=== PATIENT | female | born 1980 | race Caucasian/White ===

== ENCOUNTER → 2018-08-14 12:22 | Outpatient (CLI) | payer OTHER, SELFPAY ==
--- NOTE | 2018-08-14 12:25 | RAD_ITS ---
HISTORY: cough x 4 weeks, has had antibiotics, coughing up phlegm EXAM: XR Chest 2 Views: COMPARISON: None FINDINGS: # of images incl. paperwork: 2 LINES/DEVICES: None. LUNGS: Radiographically clear. No consolidation, edema or effusion. No pneumothorax. MEDIASTINUM AND CARDIOVASCULAR STRUCTURES: Cardiac silhouette not enlarged. Central airways and mediastinal contour are unremarkable. BONES AND SOFT TISSUES: Unremarkable. RAD/Chest PA and Lateral IMPRESSION: No radiographic evidence of acute cardiopulmonary disease. at 1237 Reported and signed by: Vasquez Greenwood MD Electronically Signed: Vasquez Greenwood, at 12:35 EST Tel , Service support ,
== END ==
PROVIDERS: Referring Provider Physician Assistant; Visit Provider Physician Assistant
DX: R05 Cough (principal)
CPT/HCPCS: 71046

== ENCOUNTER → 2019-02-23 08:17 | Outpatient (CLI) | payer OTHER, SELFPAY ==
[2019-02-23 08:46] LABS: Cholesterol 209 mg/dL (200); High Density Lipoprotein 76 mg/dL; Triglycerides 56 mg/dL; Very Low Density Lipoprotein 11 mg/dL (5-40)
== END ==
PROVIDERS: Family Provider Family Medicine; PCP Family Medicine; Referring Provider Family Medicine; Visit Provider Family Medicine
DX: E78.5 Hyperlipidemia, unspecified (principal)
CPT/HCPCS: 36415; 80061

== ENCOUNTER → 2019-07-23 12:55 | Outpatient (CLI) | payer OTHER, SELFPAY ==
[2019-07-23 08:03] VITALS: BMI 27.3
[2019-07-23 15:12] LABS: Chlamydia Trachomatis by PCR Negative (Negative); Neisserai gonorrhoeae by PCR Negative (Negative); Probe Check PASS; Sample Adequacy Control PASS; Specimen Processing Control PASS
[2019-07-25 17:58] LABS: HPV APTIMA, High Risk Negative (Negative)
== END ==
PROVIDERS: Family Provider Family Medicine; PCP Family Medicine; Referring Provider Obstetrics & Gynecology; Visit Provider Obstetrics & Gynecology
DX: O09.90 Supervision of high risk pregnancy, unspecified, unspecified trimester (principal); Z12.4 Encounter for screening for malignant neoplasm of cervix
CPT/HCPCS: 87086; 87491; 87591; 87624; 88175; G0145

== ENCOUNTER → 2019-08-03 11:14 | Outpatient (CLI) | payer OTHER, SELFPAY ==
[2019-07-23 08:03] VITALS: BMI 27.3
[2019-08-03 11:37] LABS: Absolute Lymphocyte Count 1.65 X10^3/uL (0.83-4.51); Absolute Neutrophil Count 7.1 X10^3/uL (2.0-7.7); Basophil# 0.04 X10^3/uL; Basophil% 0.4 % (0-1); Eosinophil# 0.17 X10^3/uL; Eosinophils% 1.8 % (0-5); Hematocrit 39.8 % (37-47); Hemoglobin 13.1 g/dL (12.0-15.0); Lymphocyte # 1.65 X10^3/ul (4.0); Lymphocyte % 17.3 % (19-41); Mean Corp Hgb Conc 32.9 g/dL (32-36); Mean Corpuscular Hgb 29.9 pg (27.0-32.0); Mean Corpuscular Volume 90.9 fL (81-99); Mean Platelet Vol. 10.6 fl (6.2-12.0); Monocyte# 0.56 X10^3/uL; Monocyte% 5.9 % (0-10); NRBC Flagged by Analyzer 0 % (0-5); Neutrophil % 74.3 % (47-70); Platelet Count 263 K/mm3 (150-450); RBC Distribution Width CV 13.1 % (11.6-14.6); RBC Distribution Width SD 42.8 fl (35.1-43.9); Red Blood Count 4.38 M/mm3 (4.2-5.4); White Blood Count 9.6 K/mm3 (4.4-11.0)
[2019-08-03 12:19] LABS: NATERA MAILED SPECIMEN
[2019-08-03 12:53] LABS: HIV - WCH Non-Reactive (Nonreactive); Hepatitis B Surface Antigen Non-Reactive (Nonreactive); Hepatitis C Antibody Non-Reactive (Nonreactive); Rubella IgG > 500.0 IU/mL
[2019-08-09 01:51] LABS: Rapid Plasmin Reagin (RPR) NONREACTIVE (NONREACTIVE)
== END ==
PROVIDERS: PCP Family Medicine; Referring Provider Obstetrics & Gynecology; Visit Provider Obstetrics & Gynecology
DX: O09.511 Supervision of elderly primigravida, first trimester (principal); Z31.430 Encounter of female for testing for genetic disease carrier status for procreative management
CPT/HCPCS: 36415; 85025; 86592; 86703; 86762; 86803; 86850; 86900; 86901; 87340

== ENCOUNTER → 2019-11-19 09:39 | Outpatient (CLI) | payer OTHER, SELFPAY ==
[2019-11-19 08:44] VITALS: BMI 27.3
[2019-11-19 12:17] LABS: Absolute Lymphocyte Count 1.42 X10^3/uL (0.83-4.51); Absolute Neutrophil Count 6.4 X10^3/uL (2.0-7.7); Basophil# 0.03 X10^3/uL; Basophil% 0.4 % (0-1); Eosinophil# 0.13 X10^3/uL; Eosinophils% 1.5 % (0-5); Hematocrit 35.3 % (37-47); Hemoglobin 11.6 g/dL (12.0-15.0); Lymphocyte # 1.42 X10^3/ul (4.0); Lymphocyte % 16.8 % (19-41); Mean Corp Hgb Conc 32.9 g/dL (32-36); Mean Corpuscular Hgb 30.7 pg (27.0-32.0); Mean Corpuscular Volume 93.4 fL (81-99); Mean Platelet Vol. 11.3 fl (6.2-12.0); Monocyte# 0.42 X10^3/uL; NRBC Flagged by Analyzer 0 % (0-5); Neutrophil # 6.41 X10^3/uL (2.7-7.7); Neutrophil % 75.8 % (47-70); Platelet Count 237 K/mm3 (150-450); RBC Distribution Width CV 12.6 % (11.6-14.6); RBC Distribution Width SD 43.4 fl (35.1-43.9); Red Blood Count 3.78 M/mm3 (4.2-5.4); White Blood Count 8.5 K/mm3 (4.4-11.0)
[2019-11-19 12:36] LABS: Glucose Challenge Gest 1H 50g 130 mg/dL (70-140)
== END ==
PROVIDERS: PCP Family Medicine; Referring Provider Nurse Practitioner Women's Health; Visit Provider Nurse Practitioner Women's Health
DX: O09.90 Supervision of high risk pregnancy, unspecified, unspecified trimester (principal); Z3A.00 Weeks of gestation of pregnancy not specified
CPT/HCPCS: 36415; 82950; 85025

== ENCOUNTER → 2020-01-30 17:01 | Outpatient (CLI) | payer OTHER, SELFPAY ==
[2020-01-30 08:20] VITALS: BMI 27.3
== END ==
PROVIDERS: PCP Family Medicine; Referring Provider Obstetrics & Gynecology; Visit Provider Obstetrics & Gynecology
DX: Z34.90 Encounter for supervision of normal pregnancy, unspecified, unspecified trimester (principal)
CPT/HCPCS: 87081

== ENCOUNTER → 2020-02-14 08:17 | Outpatient (CLI) | payer OTHER, SELFPAY ==
[2020-02-14 08:12] VITALS: BMI 27.3
[2020-02-14 08:44] LABS: Protein, Urine (Random) 27.5 mg/dL (<11.9); Protein:Creat Ratio 297 mg/g CRE (0-200)
[2020-02-14 09:06] LABS: ALB/GLOB Ratio 0.7 RATIO (0.9-2.4); AST(SGOT) 22 U/L (15-37); Alanine Aminotransfer ALT/SGPT 26 U/L (13-56); Albumin, Serum 2.6 g/dL (3.2-5.0); Alkaline Phosphatase 213 U/L (45-117); Anion Gap 6 (5-15); BUN 11 mg/dL (7-18); BUN/Creat Ratio 16.1 RATIO (10-20); Calcium,Total 8.3 mg/dL (8.5-10.1); Chloride 103 mmol/L (98-107); Creatinine, Serum 0.68 mg/dL (0.55-1.02); EST Glomerular Filtration Rate 102 mL/min (>60); Est Glom Filt Rate - Afr Amer 124 mL/min (>60); Globulin 3.7 g/dL (2.2-4.2); Glucose 98 mg/dL (74-106); Potassium 3.7 mmol/L (3.5-5.1); Protein, Total 6.3 g/dL (6.4-8.2); Sodium Level 133 mmol/L (136-145)
== END ==
LOC: LABSPEC 08:17 → PAVLAB 08:30
PROVIDERS: PCP Family Medicine; Referring Provider Obstetrics & Gynecology; Visit Provider Obstetrics & Gynecology
DX: O09.519 Supervision of elderly primigravida, unspecified trimester (principal); Z3A.00 Weeks of gestation of pregnancy not specified
CPT/HCPCS: 36415; 80053; 82570; 84156

== ENCOUNTER → 2020-02-14 12:14 | Outpatient (CLI) | payer OTHER, SELFPAY ==
[2020-02-14 08:12] VITALS: BMI 27.3
--- NOTE | 2020-02-14 12:15 | US_ITS ---
STUDY: OBSTETRICAL ULTRASOUND - BIOPHYSICAL PROFILE REASON FOR EXAM: Female, 39 years old well being LMP: PRIOR ULTRASOUND: None. TECHNIQUE: TECHNICAL QUALITY: Adequate. FINDINGS: There is a single intrauterine fetus. The fetus is in a cephalic presentation. There is demonstrated cardiac activity with a heart rate of 144 bpm. There is a normal amniotic fluid volume. The largest amniotic fluid pocket measures 5.5 cm. The amniotic fluid index (JOCELIN) is 13.1 cm. The placenta is There are Grade 2 placental changes. Age by LMP: 38 weeks, 4 days. MICHAEL by LMP: 02/24/2020.. BIOPHYSICAL PROFILE: Breathing Movements (FBM): 2 Gross Body Movements (GBM): 2 Tone (FT): 2 Amniotic Fluid Volume (AFV): 2 TOTAL SCORE: 8 / 8 US/Biophysical Prof W/O Non Stres IMPRESSION: Normal biophysical profile of 8/8. Electronically Signed: Heri Coates, at 13:14 EDT , Service support ,
== END ==
PROVIDERS: PCP Family Medicine; Referring Provider Obstetrics & Gynecology; Visit Provider Obstetrics & Gynecology
DX: Z36.9 Encounter for antenatal screening, unspecified (principal); O09.513 Supervision of elderly primigravida, third trimester; Z3A.38 38 weeks gestation of pregnancy
CPT/HCPCS: 76819

== ENCOUNTER 2020-02-16 12:35 | Inpatient (IN) | payer OTHER, SELFPAY ==
[2020-01-14 08:08] VITALS: BMI 32.8
[2020-02-14 08:12] VITALS: BMI 27.3
[2020-02-16] VITALS (45 sets, daily range): BP systolic 104–149; BP diastolic 54–87; PULSE 56–105; RESP 16; TEMP 35.9–36.7; O2SAT 93–99; BMI 33.4
[2020-02-16] MEDS: Lactated Ringers 1,000 ML 50 ML IV (11:00)
[2020-02-16 11:17] LABS: Absolute Lymphocyte Count 1.59 X10^3/uL (0.83-4.51); Absolute Neutrophil Count 6.9 X10^3/uL (2.0-7.7); Basophil# 0.03 X10^3/uL; Basophil% 0.3 % (0-1); Eosinophil# 0.07 X10^3/uL; Eosinophils% 0.8 % (0-5); Hematocrit 39.2 % (37-47); Hemoglobin 13.2 g/dL (12.0-15.0); Lymphocyte # 1.59 X10^3/ul (4.0); Lymphocyte % 17.4 % (19-41); Mean Corp Hgb Conc 33.7 g/dL (32-36); Mean Corpuscular Hgb 30.9 pg (27.0-32.0); Mean Corpuscular Volume 91.8 fL (81-99); Monocyte# 0.56 X10^3/uL; Monocyte% 6.1 % (0-10); NRBC Flagged by Analyzer 0 % (0-5); Neutrophil # 6.87 X10^3/uL (2.7-7.7); Neutrophil % 75.1 % (47-70); Platelet Count 249 K/mm3 (150-450); RBC Distribution Width SD 42.5 fl (35.1-43.9); Red Blood Count 4.27 M/mm3 (4.2-5.4); White Blood Count 9.2 K/mm3 (4.4-11.0)
[2020-02-16] MEDS: fentaNYL 100 MCG/2 ML Ampul 50 MCG IV (11:25)
[2020-02-16] MEDS: Lactated Ringers 500 ML 999 ML IV ×2 (12:37→14:16)
[2020-02-16] MEDS: fentaNYL 100 MCG/2 ML Ampul IV (13:28)
[2020-02-16] MEDS: fentaNYL-bupivacaine (epidural) 100 ML BAG EPIDURAL (13:45)
[2020-02-16] MEDS: Oxytocin 30 units/NS 500 ml 30 UNITS/500 ML IV.SOLN 334 UNITS IV (16:05)
[2020-02-16 16:06] LABS: Probe Check PASS; Specimen Processing Control PASS
[2020-02-16] MEDS: Naproxen 250 MG Tablet 500 MG PO (17:33)
[2020-02-17] VITALS: BP 134/77; PULSE 88; RESP 16; TEMP 37.1
[2020-02-17 00:03] VITALS: BP 134/77; PULSE 88
[2020-02-17] MEDS: Acetaminophen 500 MG Tablet 1000 MG PO (00:12)
[2020-02-17 02:00] VITALS: BP 123/80; PULSE 85; RESP 16; TEMP 36.6
--- NOTE | 2020-02-17 04:54 | HP.PCM_ITS ---
- Problem List (1) Active labor at term Status: Acute (2) Anxiety Status: Acute Comment: zoloft 50 mg. stable. (3) HSV (herpes simplex virus) infection Status: Acute Comment: valtrex after 36 weeks (4) Advanced maternal age (AMA) in Status: Acute Comment: NIPT low risk- female. plan 36 week growth US (5) Status: Acute Qualifiers: Comment: carrier and NIPT low risk. FU growth US adequate (6) Supervision of high-risk Status: Acute Qualifiers: Comment: PRR MICHAEL 02/24/20 girl Cony Anthony History Date of Admission: 02/16/20 Final MICHAEL: 02/24/20 Gestational age: 39 Weeks and 0 Days History of this : This is a 39 year-old, G 2, P 0, at 38 weeks gestational age. Presents in active labor 5 cm dilated. Patient has had an uncomplicated other than advanced maternal age. This past week she has had itching but had a normal CBC and CMP and pending bile acids. Reassuring BPP this week. Medical History: Medical History (Last Reviewed 02/14/20 @ 08:12 by Margareth Domingo) Anxiety (Acute) F41.9 zoloft 50 mg. stable. Oral herpes B00.2 Surgical History: Surgical History (Last Reviewed 02/14/20 @ 08:12 by Margareth Domingo) [place] teeth extracted K08.409 Allergies Penicillins Adverse Reaction (Verified 02/16/20 10:25) hives Sulfa (Sulfonamide Antibiotics) Adverse Reaction (Verified 02/16/20 10:25) hives Home Medications: Home Medications docosahexaenoic acid 200 mg capsule mg PO 07/23/19 famotidine 20 mg tablet 20 mg PO DAILY 07/23/19 ondansetron HCl 4 mg tablet 4 mg PO Q4H #60 tab 07/23/19 sertraline 50 mg tablet 50 mg PO DAILY 07/23/19 Smoking Status: Never smoker Alcohol: None Substance Use Type: Anxiety Medications Number of Fetus(es): 1 NST - FHR Rate Baby A Baseline: 130 Variability:: Moderate Accelerations:: 15 x 15 Decelerations:: Variable NST Reactive:: Yes FHR Category:: Category II Uterine Activity:: Every 3 to 5 minutes History Past Pregnancies: Past Pregnancies Previous early SAB uncomplicated Delivery Date Name GA/ Weeks Outcome Route Wt Infant Sex Labor Length Anesthesia Delivery Location Provider FOB Labs: All Active Problems (Last Reviewed 02/14/20 @ 08:12 by Margareth Domingo) Anxiety (Acute) HSV (herpes simplex virus) infection (Acute) Advanced maternal age (AMA) in (Acute) (Acute) Supervision of high-risk (Acute) Abnormal ultrasound (Resolved) Mom's Labs & Results 02/16/20 02/16/20 02/16/20 11:00 11:00 13:56 WBC 9.2 RBC 4.27 Hgb 13.2 Hct 39.2 MCV 91.8 MCH 30.9 MCHC 33.7 RDW Std Deviation 42.5 RDW Coeff of Terrance 13.0 Plt Count 249 MPV 12.0 Immature Gran % (Auto) 0.300 Neut % (Auto) 75.1 H Lymph % (Auto) 17.4 L [place] % (Auto) 6.1 Eos % (Auto) 0.8 Baso % (Auto) 0.3 Absolute Neuts (auto) 6.9 Absolute Lymphs (auto) 1.59 Nucleated RBC % 0 COVID-19 (CARLOS A) Negative Blood Type O POSITIVE Antibody Screen NEGATIVE Course Did the patient receive Yes care? Labs Blood Type: O RH: POSITIVE RPR/VDRL/Syphilis Nonreactive Rubella status Immune HbSAg Negative Date Done: 08/03/19 Chlamydia Negative Gonorrhea Negative HIV/AIDS Non-Reactive Group B Strep: Negative Current Obstetrical History Gestational Diabetes No Incompetent Cervix No Infertility No IUGR No Macrosomia No Hypertension/Pre-eclampsia No Placenta Previa/Abruption No PTL/PROM No Uterine anomaly No Oligohydramnios No Polyhydramnios No Multiple gestation No Past Medical History Asthma No Diabetes No Hypertension No Heart disease No Mitral valve prolapse No Neurologic/Seizure disorder/ No Migraines Kidney disease No Liver disease No Varicosities No Clotting disorders/Hx of DVT No Thyroid Dysfunction No Other medical diseases No Psychiatric disorders Yes: anxiety Major trauma No Abnormal PAP smear No Sleep apnea No Mammogram in the last 2 years No Social History Marital Status: Alleged father Anthony Hx Smoking No Smoking Status Never smoker Substance Use Type Anxiety Medications How long have you used zoloft substances (years)? Expected Delivery Method: Spontaneous Vaginal Review of Systems Constitutional: Denies: Fever, Malaise Eyes: Denies: Blurred vision, Vision Change HEENT: Denies: Head Aches, Visual Changes Cardiovascular: Denies: Chest Pain, Palpitations Respiratory: Denies: Cough, Shortness of Breath, Wheezing Gastrointestinal: Denies: Abdominal Pain, Diarrhea, Nausea, Vomiting Genitourinary: Denies: Dysuria, Hematuria Musculoskeletal: Denies: Joint Pain, Muscle pain Skin: Denies: Lesions, Rash Neurological: Denies: Blurred vision, Focal weakness, Headaches Psychiatric: Denies: Anxiety, Depression Endocrine: Denies: Heat/ Cold Intolerance Hematologic/ Lymphatic: Denies: Easy Bruising, Easy Bleeding Physical Exam Vitals: Vital Signs Temp Pulse Resp BP Pulse Ox 97.8 F 85 16 123/80 H 98 02/17/20 02:00 02/17/20 02:00 02/17/20 02:00 02/17/20 02:00 02/16/20 20:07 General: Alert, Cooperative, No apparent distress HEENT: Atraumatic, Normocephalic. Negative for: Thyromegaly, Lymphadenopathy Cardiovascular: Regular rate Lungs: Normal air movement Abdomen: Soft, Non Tender, Gravid Neurological: Deep Tendon Reflexes 2+/4 and Symmetrical, Neuro grossly intact. 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 Negative for: Vulvar lesions Estimated gestational size: Appropriate for gestational size Presentation: Cephalic Cervix Dilation (cm): 5 Station: -1 Effacement (%): 80 Assessment/Plan All Active Problems (Last Reviewed 02/14/20 @ 08:12 by Margareth Domingo) Active labor at term (Acute) Anxiety (Acute) HSV (herpes simplex virus) infection (Acute) Advanced maternal age (AMA) in (Acute) (Acute) Supervision of high-risk (Acute) Abnormal ultrasound (Resolved) This is a 39 year-old, G 2, P 0, at 38 weeks gestational age. Presents in active labor Patient presents IAL, plan expectant management for , Pitocin/AROM if needed. Pain management: Plans epidural. GBS negative. Management of any complications: AMA I have reviewed the [facility] and made any clinically relevant updates.
--- NOTE | 2020-02-17 05:00 | PCM.OPRPT ---
Problem List (1) Active labor at term Status: Acute (2) Anxiety Status: Acute Comment: zoloft 50 mg. stable. (3) HSV (herpes simplex virus) infection Status: Acute Comment: valtrex after 36 weeks (4) Advanced maternal age (AMA) in Status: Acute Comment: NIPT low risk- female. plan 36 week growth US (5) Status: Acute Qualifiers: Comment: carrier and NIPT low risk. FU growth US adequate (6) Supervision of high-risk Status: Acute Qualifiers: Comment: PRR MICHAEL 02/24/20 girl Cony Anthony Vaginal Delivery Maternal Presentation: Active Labor 39-year-old presents at 38 weeks 6 days in active labor 5 cm presents in active labor Amniotic Membrane Rupture Type: Spontaneous Amniotic Fluid Description: Clear Final MICHAEL: 02/24/20 Gestational age: 39 Weeks and 0 Days Date of Procedure: 02/16/20 Pre-Operative Diagnosis: In active labor Post-Operative Diagnosis: Same Surgery/ Procedure Performed: Spontaneous Vaginal Delivery Type of Anesthesia: Epidural Description of Procedure: Patient began pushing and delivered the head in the ROP presentation. The head was delivered atraumatically. The anterior and posterior shoulders delivered without complication followed by the rest of the infant and the was placed on the maternal abdomen. Delayed cord clamping was employed for approximately 60 seconds. Cord was clamped and cut and gentle traction was applied to the cord and the placenta delivered spontaneously immediately following it was noted to be intact with three-vessel cord. The perineum and vagina were inspected and noted to have a second-degree perineal laceration that was repaired in the usual fashion with 3-0 Vicryl Rapide. EBL was 100 cc. Patient and tolerated delivery well. Presentation: ROP Placental Delivery Description: Spontaneous Placenta Disposition: [facility] Cord Vessel Description: 3 Vessels Cord Entanglement: None Estimated Blood Loss: 100 A gender: Female Episiotomy Description: None Laceration: Perineal Extension/lac, 2nd degree Medications given after delivery: IV Pitocin Complications: None Multi Select Codes - Urinary/Genital Urinary/Genital CPT Codes: 56903 Vaginal Delivery [facility]
[2020-02-17 07:28] VITALS: BP 123/68; PULSE 79; RESP 18; TEMP 36.7
--- NOTE | 2020-02-17 07:28 | DCINST_ITS ---
Discharge Diet: No Restrictions Discharge Activity: Return to Normal Activity, May not drive while taking narcotic pain medications., May Shower May resume sexual activity in: 4-6 weeks Call your doctor if your incision/area has: Continuous Slow Oozing, Sudden Increased Bleeding, Increased Pain/ Swelling, Increased Redness, Foul Smelling Discharge Additional Instructions: If you experience any of the following, contact your healthcare provider. * Bleeding that soaks a pad every hour for 2 hours * Fever 100.4 or higher * Unrelieved incision or abdominal pain * Swelling, redness, discharge or bleeding from your incision or episiotomy site * Your incision begins to separate * Problems urinating (including inability to urinate or burning while urinating). * Visual changes * Severe headache * Flu-like symptoms * Pain or redness in one of both of your breasts * Pain, warmth, tenderness or swelling in your legs, especially the calf area * Frequent nausea and vomiting * Symptoms of depression or anxiety If you experience any of the following, call 911 or go to the nearest Emergency Room. * Chest pain * Problems breathing * Seizure activity * Partial or complete paralysis of a body part, slurred speech, weakness or drooping of the face, or a sudden inability to walk or hold your balance Allergies/Adverse Reactions: Allergies Penicillins Adverse Reaction (Verified 02/16/20 10:25) hives Sulfa (Sulfonamide Antibiotics) Adverse Reaction (Verified 02/16/20 10:25) hives Medications to take at Discharge docosahexaenoic acid 200 mg capsule mg PO 07/23/19 famotidine 20 mg tablet 20 mg PO DAILY 07/23/19 ondansetron HCl 4 mg tablet 4 mg PO Q4H #60 tab 07/23/19 sertraline 50 mg tablet 50 mg PO DAILY 07/23/19 Please Follow Up With: Stefanie Narvaez MD - [phone] When: Call to make an appointment with your doctor in 6 weeks. If you had elevated Blood pressure or 4th degree laceration you will need to be seen in 2 weeks. Primary Care Physician: Enedelia Rodgers MD [Primary Care Provider] - Test Results: Test results from this visit will be discussed in further detail at your follow- up appointment, if applicable.
--- NOTE | 2020-02-17 07:28 | PCM.PN.OB ---
Patient Problems: Active and Suspected Problems (Last Reviewed 02/14/20 @ 08:12 by Margareth Domingo) Active labor at term (Acute) Subjective: doing well no complaints pain controlled no CP SOB N V ambulating well tolerating po lochia moderate, going well - Physical Exam Vitals/I&O's: Vital Signs Temp Pulse Resp BP Pulse Ox 97.8 F 85 16 123/80 H 98 02/17/20 02:00 02/17/20 02:00 02/17/20 02:00 02/17/20 02:00 02/16/20 20:07 Oxygen Delivery Method Room Air Weight: 207 lb 3.752 oz Body Mass Index (BMI) 33.4 Intake and Output for Last 24 Hours 02/15/20 02/16/20 02/17/20 23:59 23:59 23:59 Intake Total 1754.17 / 1754.17 Output Total 200 / 200 Balance 1554.17 / 1554.17 Laboratory Results 02/16/20 11:00: WBC 9.2, RBC 4.27, Hgb 13.2, Hct 39.2, MCV 91.8, MCH 30.9, MCHC 33.7, RDW Std Deviation 42.5, RDW Coeff of Terrance 13.0, Plt Count 249, MPV 12.0, Immature Gran % (Auto) 0.300, Neut % (Auto) 75.1 H, Lymph % (Auto) 17.4 L, [place] % (Auto) 6.1, Eos % (Auto) 0.8, Baso % (Auto) 0.3, Absolute Neuts (auto) 6.9, Absolute Lymphs (auto) 1.59, Nucleated RBC % 0 02/16/20 11:00: Blood Type O POSITIVE, Antibody Screen NEGATIVE 02/16/20 13:56: COVID-19 (CARLOS A) Negative Current Medications Acetaminophen (Tylenol) 1,000 mg PO Q8H PRN PRN PRN Reason: Pain Score 1-3/10 Last Admin: 02/17/20 00:12 Dose: 1,000 mg Documented by: Bisacodyl (Dulcolax) 10 mg RECTAL UD PRN PRN Reason: If no BM Dibucaine (Dibucaine) 1 applic TOPICAL TID PRN PRN; Protocol PRN Reason: Discomfort Famotidine (Pepcid) 20 mg PO DAILY GILLIAN Hydrocortisone (Hytone) 1 applic TOPICAL TID PRN PRN; Protocol PRN Reason: Discomfort Methylergonovine Maleate (Methergine) 0.2 mg IM X1 PRN PRN Reason: Excess bleeding/uterine atony Naproxen (Naprosyn) 500 mg PO Q8H PRN PRN PRN Reason: Pain Score 1-3/10 Last Admin: 02/16/20 17:33 Dose: 500 mg Documented by: Ondansetron HCl (Zofran) 4 mg IV Q4H PRN PRN PRN Reason: Nausea Oxycodone HCl (Oxyir) 5 - 10 mg PO Q4H PRN PRN PRN Reason: Pain Score 4-10/10 Senna/Docusate Sodium (Senokot-S, Leora-Colace) 1 - 2 tablet PO DAILY PRN PRN PRN Reason: Constipation Sertraline HCl (Zoloft) 50 mg PO DAILY GILLIAN Simethicone (Mylicon) 80 mg PO PCHS PRN PRN Reason: Indigestion/Stomach pain Sodium Chloride () 5 - 15 ml IV UD PRN PRN Reason: SALINE FLUSH Medical Necessity - Tobacco Use Smoking Status: Never smoker Assessment/Plan All Active Problems (Last Reviewed 02/14/20 @ 08:12 by Margareth Domingo) Active labor at term (Acute) Anxiety (Acute) HSV (herpes simplex virus) infection (Acute) Advanced maternal age (AMA) in (Acute) (Acute) Supervision of high-risk (Acute) Abnormal ultrasound (Resolved) s/p PPD # 1 1. routine post delivery care 2. breast feeding- support given 3. rh positive 4. rubella immune
[2020-02-17 08:00] VITALS: BP 124/77; PULSE 80; RESP 18; TEMP 36.4
[2020-02-17] MEDS: Naproxen 250 MG Tablet 500 MG PO (08:00)
--- NOTE | 2020-02-17 08:10 | NURSING ---
encouraged to void
[2020-02-17] MEDS: Sertraline 50 MG Tablet PO (09:30)
[2020-02-17] MEDS: Famotidine 20 MG Tablet PO (09:32)
[2020-02-17 12:45] VITALS: BP 126/66; PULSE 78; RESP 18; TEMP 37
== END 2020-02-17 19:00 | disposition home or self-care (01) | DRG 807 ==
LOC: WPOUT 12:41 → WP 12:41
PROVIDERS: Admitting Provider Obstetrics & Gynecology; PCP Family Medicine; Referring Provider Obstetrics & Gynecology; Visit Provider Obstetrics & Gynecology
DX: O76 Abnormality in fetal heart rate and rhythm complicating labor and delivery (principal); Z37.0 Single live birth; O70.1 Second degree perineal laceration during delivery; O99.344 Other mental disorders complicating childbirth; F41.9 Anxiety disorder, unspecified; Z79.899 Other long term (current) drug therapy; Z3A.38 38 weeks gestation of pregnancy
CPT/HCPCS: 59025; 59050; 85025; 86850; 86900; 86901; 87635; 94799; 99218; J7120; G0378; U0003

== ENCOUNTER 2021-09-16 07:48 | Outpatient (CLI) | payer OTHER, SELFPAY ==
[2021-09-16 08:07] LABS: Absolute Lymphocyte Count 2.27 X10^3/uL (0.83-4.51); Absolute Neutrophil Count 2.6 X10^3/uL (2.0-7.7); Basophil# 0.06 X10^3/uL; Basophil% 1.1 % (0-1); Eosinophil# 0.14 X10^3/uL; Eosinophils% 2.5 % (0-5); Hematocrit 39.5 % (37-47); Hemoglobin 13.2 g/dL (12.0-15.0); Lymphocyte # 2.27 X10^3/ul (0.83-4.51); Mean Corp Hgb Conc 33.4 g/dL (32-36); Mean Corpuscular Hgb 30.1 pg (27.0-32.0); Mean Platelet Vol. 10.6 fl (6.2-12.0); Monocyte# 0.46 X10^3/uL; Monocyte% 8.3 % (0-10); NRBC Flagged by Analyzer 0 % (0-5); Neutrophil # 2.59 X10^3/uL (2.7-7.7); Neutrophil % 46.9 % (47-70); Platelet Count 269 K/mm3 (150-450); RBC Distribution Width CV 12.7 % (11.6-14.6); RBC Distribution Width SD 42.5 fl (35.1-43.9); Red Blood Count 4.39 M/mm3 (4.2-5.4); White Blood Count 5.5 K/mm3 (4.4-11.0)
[2021-09-16 08:49] LABS: ALB/GLOB Ratio 1.2 RATIO (0.9-2.4); AST(SGOT) 16 U/L (15-37); Alanine Aminotransfer ALT/SGPT 30 U/L (13-56); Albumin, Serum 3.7 g/dL (3.2-5.0); Alkaline Phosphatase 85 U/L (45-117); Anion Gap 6 (5-15); BUN 15 mg/dL (7-18); BUN/Creat Ratio 18.5 RATIO (10-20); Calcium,Total 8.5 mg/dL (8.5-10.1); Chloride 104 mmol/L (98-107); Cholesterol 221 mg/dL (200); Creatinine, Serum 0.81 mg/dL (0.55-1.02); EST Glomerular Filtration Rate 84 mL/min (>60); Est Glom Filt Rate - Afr Amer 101 mL/min (>60); Globulin 3.1 g/dL (2.2-4.2); Glucose 94 mg/dL (74-106); High Density Lipoprotein 58 mg/dL; Potassium 3.9 mmol/L (3.5-5.1); Protein, Total 6.8 g/dL (6.4-8.2); Sodium Level 139 mmol/L (136-145); Thyroid Stim Hormone (TSH) 2.21 uIU/mL (0.358-3.74); Triglycerides 110 mg/dL; Very Low Density Lipoprotein 22 mg/dL (5-40)
== END 2021-09-16 23:59 | disposition home or self-care (01) ==
PROVIDERS: PCP Family Medicine; Referring Provider Family Medicine; Visit Provider Family Medicine
DX: Z00.01 Encounter for general adult medical examination with abnormal findings (principal); R53.83 Other fatigue
CPT/HCPCS: 36415; 80053; 80061; 84443; 85025

== ENCOUNTER 2021-12-23 00:32 | Emergency (ER) | payer OTHER, SELFPAY ==
[2021-12-23 00:33] VITALS: BP 117/74; PULSE 71; RESP 16; TEMP 36.9; O2SAT 98; BMI 31.0
--- NOTE | 2021-12-23 00:50 | EKG12_ITS ---
Test Reason : DYSRHYTHMIA Blood Pressure : / mmHG Vent. Rate : 061 BPM Atrial Rate : 061 BPM P-R Int : 158 ms QRS Dur : 098 ms QT Int : 416 ms P-R-T Axes : 046 072 044 degrees QTc Int : 418 ms Normal sinus rhythm Normal ECG Confirmed by RODNEY JENKINS, KALLI ([id number]), assistant editor JEREMIAH STRONG ([id number]) on 12/23/2021 9:06:12 AM Referred By: YEISON Confirmed By:KALLI STEVENS MD
--- NOTE | 2021-12-23 00:50 | CT_ITS ---
STUDY: CT ABDOMEN AND PELVIS WITH CONTRAST REASON FOR EXAM: Female, 41 years old. abd pain RADIATION DOSAGE (If Supplied By Facility): CTDIvol = ( 18.26 ) mGy, DLP = ( 1072.20 ) mGycm TECHNIQUE: Transaxial images were obtained from the dome of the diaphragm to the symphysis pubis without oral contrast. Oral and amp; IV Gastrografin and amp; 100mL Isovue-300 was administered. Sagittal and coronal images were reconstructed. Individualized dose optimization techniques were used for this CT. COMPARISON: None. FINDINGS: LOWER CHEST: Normal. LIVER: Mild portal edema.. GALLBLADDER/BILE DUCTS: Normal. PANCREAS: Normal. SPLEEN: Normal. ADRENAL GLANDS: Normal. KIDNEYS/URETERS/BLADDER: Normal. RETROPERITONEUM/AORTA: Normal. BOWEL/MESENTERY: Scattered colonic diverticulosis without discrete evidence of acute diverticulitis. Prominent mesenteric lymph nodes. Mild increased stool. No bowel dilatation or bowel wall thickening. Enteric contrast transits unobstructed into the distal small bowel.. APPENDIX: Identified and normal. PERITONEUM: Normal. REPRODUCTIVE ORGANS: Intrauterine device in place. BONES/SOFT TISSUES: L5 pars defects and grade 1 anterolisthesis L5 on S1. No acute osseous abnormality. OTHER: None. CT/Abdomen/Pelvis WITH Contrast IMPRESSION: 1. No bowel dilatation or bowel wall thickening. 2. Mild increased stool. 3. Normal appendix. 4. Nonspecific mild portal edema. Electronically Signed: Everton Terry MD at 3:12 EDT ,
[2021-12-23 01:13] LABS: Absolute Lymphocyte Count 1.01 X10^3/uL (0.83-4.51); Absolute Neutrophil Count 7.6 X10^3/uL (2.0-7.7); Basophil# 0.04 X10^3/uL; Basophil% 0.4 % (0-1); Eosinophil# 0.13 X10^3/uL; Eosinophils% 1.4 % (0-5); Hematocrit 39.4 % (37-47); Hemoglobin 13.1 g/dL (12.0-15.0); Lymphocyte # 1.01 X10^3/ul (0.83-4.51); Lymphocyte % 10.8 % (19-41); Mean Corp Hgb Conc 33.2 g/dL (32-36); Mean Corpuscular Hgb 30.5 pg (27.0-32.0); Mean Corpuscular Volume 91.6 fL (81-99); Mean Platelet Vol. 11.3 fl (6.2-12.0); Monocyte# 0.58 X10^3/uL; Monocyte% 6.2 % (0-10); NRBC Flagged by Analyzer 0 % (0-5); Neutrophil # 7.55 X10^3/uL (2.7-7.7); Neutrophil % 80.7 % (47-70); Platelet Count 182 K/mm3 (150-450); RBC Distribution Width CV 12.5 % (11.6-14.6); RBC Distribution Width SD 41.9 fl (35.1-43.9); White Blood Count 9.4 K/mm3 (4.4-11.0)
[2021-12-23] MEDS: 0.9% Normal Saline 1,000 ML 999 ML IV (01:13)
[2021-12-23 01:29] LABS: Internal QC Validated? YES +Cl - CLEAR BKGD; Pregnancy, Urine Negative Negative
[2021-12-23 01:32] LABS: AST(SGOT) 141 U/L (15-37); Alanine Aminotransfer ALT/SGPT 131 U/L (13-56); Albumin, Serum 3.8 g/dL (3.2-5.0); Alkaline Phosphatase 144 U/L (45-117); Anion Gap 5 (5-15); BUN 20 mg/dL (7-18); BUN/Creat Ratio 22.9 RATIO (10-20); Bilirubin, Direct 0.12 mg/dL (0.00-0.30); Calcium,Total 8.9 mg/dL (8.5-10.1); Chloride 109 mmol/L (98-107); Creatinine, Serum 0.88 mg/dL (0.55-1.02); EST Glomerular Filtration Rate 76 mL/min (>60); Est Glom Filt Rate - Afr Amer 92 mL/min (>60); Estimated Creatinine Clearance 80.35 ml/min; Globulin 2.9 g/dL (2.2-4.2); Glucose 106 mg/dL (74-106); Lipase 108 U/L (73-393); Potassium 3.7 mmol/L (3.5-5.1); Protein, Total 6.7 g/dL (6.4-8.2); Sodium Level 139 mmol/L (136-145); Troponin-I HS 4 pg/mL (3.0-54.0)
[2021-12-23 01:36] LABS: Lactic Acid 0.6 mmol/L (0.4-1.9)
--- NOTE | 2021-12-23 01:55 | EDS_ITS ---
HPI History of Present Illness Chief Complaint: Abd Pain Narrative Narrative: Patient is a 41-year-old female with no significant past medical or surgical history. She states around 0 this evening she noticed that she was having discomfort in the upper mid abdomen region. She states there was no trauma no associated nausea or vomiting and no true chest pain or shortness of breath. She states that there has been no recent sick symptoms such as fevers or chills or urinary symptoms. She states that the pain has been persistent for multiple hours and secondary to this presents for evaluation [facility] Medical History (Updated 12/23/21 @ 05:[address] London Platt DO) Anxiety Oral herpes Home Medications sertraline 50 mg tablet 50 mg PO DAILY 07/23/19 [History Last Taken Unknown] Allergy/AdvReac Type Severity Reaction Status Date / Time Penicillins AdvReac hives Verified 12/23/21 00:38 Sulfa (Sulfonamide AdvReac hives Verified 12/23/21 00:38 Antibiotics) Family History Mother Breast cancer Father Suicide Surgical History [place] teeth extracted Social History (Updated 08/22/20 @ 10:[address] Prashant Teresa DO) current occupational status: employed Smoking Status: Never smoker alcohol intake: current alcohol intake frequency: holidays/special occasions only substance use type: does not use seatbelt use: always do you feel safe at home: Yes additional social history: Anthony BROWN ED Constitutional Constitutional ED: Denies chills or fever(s) ENT ENT ED: Denies sore throat Cardiovascular Cardiovascular: Denies chest pain Respiratory/Chest Respiratory/Chest: Denies cough or dyspnea Gastrointestinal Gastrointestinal: Reports abdominal pain; Denies diarrhea, nausea or vomiting Genitourinary Genitourinary ED: Denies dysuria Musculoskeletal Musculoskeletal: Denies back pain or myalgias Integumentary Denies rash Neurologic Neurologic: Denies headache(s) Hematologic/Lymphatic Hematologic/Lymphatic: Denies easy bleeding or easy bruising EXAM Physical Exam Const Vital Signs: 12/23/21 00:33 12/23/21 04:55 Temperature 98.5 F Temperature Source Temporal Pulse Rate 71 Respiratory Rate 16 17 Blood Pressure 117/74 Blood Pressure Mean 88 Pulse Ox 98 Oxygen Delivery Method Room Air Positive well nourished and well developed General Appearance ED: well developed Eyes PERRL and EOMs intact bilaterally General Eye ED: Negative for scleral icterus Neck supple Resp normal respiratory effort and clear to auscultation bilaterally Cardio regular rate and regular rhythm Rate: other Other Details: Radial pulses are plus 2 out of 4 bilaterally are equ al and symmetric GI non-distended GI Narrative: There is pain with palpation in the midepigastric region without voluntary guarding or rigidity. No pulsatile mass or fluid wave Auscultation: normoactive bowel sounds Palpation: soft Extremity normal to inspection Neuro oriented x3 and CN's II-XII intact bilaterally Sensorium / Orientation: alert Motor Exam: strength 5/5 throughout Psych mental status grossly normal Skin no rashes or lesions noted General Skin Exam: Negative for jaundice MDM MDM MDM Narrative Medical decision making narrative: Patient presented to the ER with stable vitals but with pain in the midepigastric region that have been going on for multiple hours I elected to perform a basic work-up. A EKG and troponin were ordered based on the fact the pain was in the upper abdominal region but otherwise patient has no cardiac risk factors and the cardiac work-up is negative. The patient's liver enzymes are slightly elevated compared to September this year. The CT scan showed mild nonspecific periportal but was otherwise negative. Based on her mild bump to liver enzymes there is concerned this could be gallbladder in nature so an ultrasound was ordered. This did not show any acute finding. On reevaluation patient reports that her pain has been resolved for approximately 1 hour. Therefore with negative work-up and resolution of pain patient will be discharged at this time and can follow-up on an outpatient basis. Lab Data Attestation: I reviewed the patient's lab results. Labs: Laboratory Results - last 24 hr 12/23/21 12/23/21 12/23/21 00:55 00:55 00:55 WBC 9.4 RBC 4.30 Hgb 13.1 Hct 39.4 MCV 91.6 MCH 30.5 MCHC 33.2 RDW Std Deviation 41.9 RDW Coeff of Terrance 12.5 Plt Count 182 MPV 11.3 Immature Gran % (Auto) 0.500 Neut % (Auto) 80.7 H Lymph % (Auto) 10.8 L [place] % (Auto) 6.2 Eos % (Auto) 1.4 Baso % (Auto) 0.4 Absolute Neuts (auto) 7.6 Absolute Lymphs (auto) 1.01 Nucleated RBC % 0 Sodium 139 Potassium 3.7 Chloride 109 H Carbon Dioxide 25.0 Anion Gap 5 BUN 20 H Creatinine 0.88 Estim Creat Clear Calc 80.35 Est GFR (MDRD) Af Amer 92 Est GFR (MDRD) Non-Af 76 BUN/Creatinine Ratio 22.9 H Glucose 106 Lactic Acid 0.6 Calcium 8.9 Total Bilirubin 0.20 Direct Bilirubin 0.12 AST 141 H ALT 131 H Alkaline Phosphatase 144 H Troponin I High Sens 4 Total Protein 6.7 Albumin 3.8 Globulin 2.9 Lipase 108 Urine Test 12/23/21 01:14 WBC RBC Hgb Hct MCV MCH MCHC RDW Std Deviation RDW Coeff of Terrance Plt Count MPV Immature Gran % (Auto) Neut % (Auto) Lymph % (Auto) [place] % (Auto) Eos % (Auto) Baso % (Auto) Absolute Neuts (auto) Absolute Lymphs (auto) Nucleated RBC % Sodium Potassium Chloride Carbon Dioxide Anion Gap BUN Creatinine Estim Creat Clear Calc Est GFR (MDRD) Af Amer Est GFR (MDRD) Non-Af BUN/Creatinine Ratio Glucose Lactic Acid Calcium Total Bilirubin Direct Bilirubin AST ALT Alkaline Phosphatase Troponin I High Sens Total Protein Albumin Globulin Lipase Urine Test Negative Radiography Diagnostic Testing: Clinical Impression(s) from Imaging Studies Abdomen/Pelvis CT 12/23/21 00:50 IMPRESSION: 1. No bowel dilatation or bowel wall thickening. 2. Mild increased stool. 3. Normal appendix. 4. Nonspecific mild portal edema. Electronically Signed: Everton Terry MD at 3:12 EDT , Discharge Plan Triage Chief Complaint: Abd Pain ED Provider: London Platt Dx/Rx/DC Orders Clinical Impression: Nonspecific abdominal pain Instructions: Abdominal Pain Prescriptions: No Action sertraline [Zoloft] 50 mg tablet 50 mg PO DAILY RF: 0 Primary Care Provider: Enedelia Rodgers Referrals: Enedelia Rodgers MD [Primary Care Provider] - Disposition Disposition: Home, Self Care Discharge Date/Time: 12/23/21 04:57
--- NOTE | 2021-12-23 03:22 | US_ITS ---
EXAM: US Abdomen RUQ (limited) HISTORY: abd pain TECHNIQUE: US Abdomen RUQ (limited) COMPARISON: None. LIMITATIONS: None. LIVER: The liver is normal in size and echogenicity. No surface nodularity. No discrete mass. No intrahepatic biliary ductal dilatation. Normal hepatopedal portal venous flow. GALLBLADDER: Gallbladder is normally distended. No shadowing gallstones or sludge. No gallbladder wall thickening. No pericholecystic fluid. Negative sonographic Frazier sign. EXTRAHEPATIC BILE DUCTS: Normal. 6 mm PANCREAS: Visualized portions within normal limits. RIGHT KIDNEY: Normal. ASCITES: None. PLEURAL EFFUSIONS: None. OTHER: None. US/Gallbladder IMPRESSION: Unremarkable ultrasound of the right upper quadrant. Electronically Signed: Everton Terry MD at 5:01 EDT ,
[2021-12-23 04:55] VITALS: RESP 17
== END 2021-12-23 04:57 | disposition home or self-care (01) ==
LOC: ED 01:07
PROVIDERS: Emergency Provider Emergency Medicine; PCP Family Medicine; Visit Provider Emergency Medicine
DX: R10.13 Epigastric pain (principal); F41.9 Anxiety disorder, unspecified; Z79.899 Other long term (current) drug therapy
CPT/HCPCS: 74177; 76705; 80048; 80076; 81025; 83605; 83690; 84484; 85025; 93005; 96360; 96361; 99283; J7030; Q9967; A4216

== ENCOUNTER → 2022-03-03 | Outpatient (CLI) | payer OTHER, SELFPAY ==
[2022-03-03 12:09] LABS: AST(SGOT) 22 U/L (15-37); Alanine Aminotransfer ALT/SGPT 36 U/L (13-56); Albumin, Serum 3.7 g/dL (3.2-5.0); Alkaline Phosphatase 89 U/L (45-117); Bilirubin, Direct 0.11 mg/dL (0.00-0.30); Globulin 2.9 g/dL (2.2-4.2); Protein, Total 6.6 g/dL (6.4-8.2)
== END | disposition home or self-care (01) ==
PROVIDERS: PCP Family Medicine; Referring Provider Surgery; Visit Provider Surgery
DX: R74.8 Abnormal levels of other serum enzymes (principal)
CPT/HCPCS: 36415; 80076

== ENCOUNTER → 2022-07-26 | Outpatient (CLI) | payer OTHER, SELFPAY | END | disposition home or self-care (01) | PROVIDERS: PCP Family Medicine; Referring Provider Obstetrics & Gynecology; Visit Provider Obstetrics & Gynecology | DX: N89.8 Other specified noninflammatory disorders of vagina (principal) | CPT/HCPCS: 87070; 87205 ==

== ENCOUNTER → 2022-07-31 | Outpatient (CLI) | payer OTHER, SELFPAY ==
--- NOTE | 2022-07-31 10:10 | RAD_ITS ---
INDICATION: chest congestion EXAMINATION/TECHNIQUE: COMPARISON: August 14, 2018 FINDINGS: LINES/DEVICES: None. LUNGS: No consolidation, edema or effusion. No pneumothorax. MEDIASTINUM AND CARDIOVASCULAR STRUCTURES: Cardiac silhouette not enlarged. Central airways and mediastinal contour are unremarkable. BONES AND SOFT TISSUES: Unremarkable. RAD/Chest PA and Lateral IMPRESSION: No radiographic evidence of acute cardiopulmonary disease. Electronically Signed: Misty Frances MD at 10:26 EST ,
== END | disposition home or self-care (01) ==
LOC: RAD 10:06
PROVIDERS: PCP Family Medicine; Referring Provider Physician Assistant; Visit Provider Physician Assistant
DX: R05.9 Cough, unspecified (principal)
CPT/HCPCS: 71046

== ENCOUNTER → 2022-09-16 | Outpatient (CLI) | payer OTHER, SELFPAY ==
--- NOTE | 2022-09-16 08:00 | BI_ITS ---
MAMMOGRAPHY - BILATERAL SCREENING REASON FOR EXAM: Female, 42 years old. Routine annual screening examination. PERTINENT HISTORY: Non-contributory. TECHNIQUE: Digital bilateral breast tori (3D mammographic acquisition) in the CC and MLO projections. 2-D mediolateral oblique (MLO) and craniocaudad (CC) views of both breasts were obtained. CAD: Full Field Digital Mammography with Computer Added Detection was performed. COMPARISON: None. Baseline examination. FINDINGS: Breast Composition: There are scattered areas of fibroglandular density. There are no dominant masses or suspicious calcifications. Small benign-appearing bilateral axillary lymph nodes. No other significant abnormalities are identified. BI/SCRN MAMM (CAD)W/TORI BILAT IMPRESSION: Negative screening mammogram. Yearly followup mammogram recommended. (A) ASSESSMENT CATEGORY: BIRADS Category 2: Benign. A letter regarding these results will be sent to the patient by the facility within 30 days. Approximately 10% of breast cancers are not detected by mammography. A normal mammogram should not delay biopsy of a clinically suspicious abnormality. [id number] Electronically Signed: Heri Coates MD at 8:58 EST ,
== END | disposition home or self-care (01) ==
LOC: OPBI 07:58
PROVIDERS: PCP Family Medicine; Referring Provider Family Medicine; Visit Provider Family Medicine
DX: Z12.31 Encounter for screening mammogram for malignant neoplasm of breast (principal)
CPT/HCPCS: 77063; 77067

== ENCOUNTER 2024-01-03 06:03 | Day surgery (SDC) | payer OTHER, SELFPAY ==
[2024-01-03] VITALS (7 sets, daily range): BP systolic 93–115; BP diastolic 55–69; PULSE 60–67; RESP 14–16; TEMP 36.4–36.8; O2SAT 97–100; BMI 29.0
--- NOTE | 2024-01-03 06:12 | HP.PCM_ITS ---
History and Physical Date of Admission: 01/03/24 Intake Vital Signs 07/26/2311:21 12/27/2409:56 Height 5 ft 6 in 5 ft 6 in Weight: 183 lb BMI 29.5 BP 122/75 H Blood Pressure Location Rt brachial Position Sitting Respiration 16 Intake Visit Reasons: Bright red blood per rectum Chief Complaint: rectal bleeding Soap Inspector Required: No Is patient in pain?: No Allergies Penicillins Adverse Reaction (Verified 12/28/23 10:56) hivesSulfa (Sulfonamide Antibiotics) Adverse Reaction (Verified 12/28/23 10:56) hives Medications ?Medication ?Instructions ?Recorded ?Confirmed ?Type sertraline 50 mg tablet (Zoloft) 50 mg PO DAILY 07/23/19 12/28/23 History PFSH Medical History Encounter for screening colonoscopy Anxiety Oral herpes Surgical History [place] teeth extracted Family History Mother Breast cancerFather Suicide Social History current occupational status: employed Smoking Status: Never smoker alcohol intake: current alcohol intake frequency: holidays/special occasions only substance use type: does not use seatbelt use: always do you feel safe at home: Yes additional social history: Anthony Female Reproductive History Menstrual Ab spontaneous: 1 HPI HPI HPI: Patient is a 43-year-old female with blood in the stool. She has never had a colonoscopy in the past. She has no family Struve colon cancer. She says this happened sporadically. She denies any abdominal pain. She denies weight loss. ROS General General: No weight change, appetite, fatigue, colon cancer, breast cancer or weakness HEENT HEENT: No difficulty swallowing, eye injury, eye surgery, swollen glands or hoarseness Endo Endocrine: No thyroid disease, diabetes mellitus, thyroid cancer, Hair loss, heat intolerance or cold intolerance Skin Skin: No rash or changing moles Breast Breast: No left breast lump, right breast lump, nipple discharge, breast pain, abnormal mammogram, abnormal US or breast enlargement Musc Musculoskeletal: No back problems, arthritis, rheumatoid arthritis, gout or joint pain Cardio Cardiovascular: No murmur, pacemaker, heart disease, atrial fibrillation, high blood pressure, heart attack, heart stent, palpitations, shortness of breat with exertion or chest pain Psych Psychiatric: No depression, anxiety or hearing voices Resp Respiratory: No shortness of breath, No sleep apnea, No cough, No COPD, No asthma, No emphysema and No wheezing Gastro Gastrointestinal: No abdominal pain, No nausea or vomiting, No diarrhea, No constipation, Yes blood in stool, No acid reflux, No hemorrhoids, No ulcers, No gallbladder problem and No black,tarry stools Mikal Hematologic: No blood thinners, No blood disorders, No bleeding, No anemia and No blood clots Neuro Neurologic: No system reviewed and no additional complaints, except as documented, No as per HPI, No abnormal gait, No abnormal hearing, No abnormal movements, No abnormal speech, No behavioral changes, No burning sensations, No confusion, No convulsions, No disequilibrium, No dizziness, No localized weakness, No frequent falls, No headache(s), No lack of coordination, No loss of vision, No memory loss, No numbness, No other visual disturbances, No radicular pain, No restless legs, No sensory deficit, No syncope, No tingling, No tremor(s), No weakness and No other Exam Const General: cooperative Orientation: alert and oriented x3 [facility] Head: normal to inspection Neck Neck: normal visual inspection and full ROM Chest Chest palpation & inspection: normal inspection of the chest Resp Effort & Inspection: normal respiratory effort Auscultation: clear to auscultation bilaterally Cardio Rate: regular rate Rhythm: regular rhythm GI Inspection: non-distended Palpation: soft and nontender Skin General: no rashes or lesions noted Neuro General: patient alert and patient oriented x3 Extrem General: full ROM Psych Appearance: grossly normal Mental Status: mental status grossly normal Assessment and Plan Assessment and Plan (1) Blood in the stool: Status: Acute Plan: Plan for colonoscopy. I explained endoscopy in detail to the patient. I explained the risks including but not limited to stroke or heart attack with anesthesia, perforation of the GI tract, bleeding, infection. I explained that any of these could necessitate further emergency surgery. The patient understands and all questions were answered sufficiently. The patient wishes to proceed with procedure. Isael Johnson MD Pager: [facility] [address] [place] [address], [address] [place] [address] Office: I have examined the patient and the H&P has been reviewed. There are no clinical changes since date of exam.
[2024-01-03] MEDS: Lactated Ringers 1,000 ML 15 ML IV (06:54)
--- NOTE | 2024-01-03 07:00 | PRE.ANES_ITS ---
ASA Classification* ASA Classification ASA Classification: 2 Assessment & Plan Anesthesia* Anesthesia Assessment Anesthesia Assessment: Discussed sedation and/or anesthesia options, risks, benefits, and alternatives with patient/parents/legal guardian/POA. Questions invited. The patient/parents/legal guardian/POA seems to understand and agrees to proceed with anesthesia plan. Reviewed the physical assessment, medical history, allergy history and patient home medications list prior to surgery/procedure/anesthetic and documented any changes. Performed airway and anesthesia risk assessments. Anesthesia Type Anesthesia Type: MAC (see written pre-anesthesia for complete assessment) Pre-Assessment Diagnosis/Proposed Procedure Planned Operative Procedure(s): COLONOSCOPY Anesthesia History Anesthesia History - remote sensing technologist: Anesthesia History - remote sensing technologist Hx Hospitalization No 12/29/23 13:29 Any Problems With Anesthesia No 12/29/23 13:29 Cholinesterase deficiency No 12/29/23 13:29 You/Your Family Experience No 12/29/23 13:29 fever (hyperthermia) with Relationship Recent Exposure to Contagious No 01/03/24 06:47 Disease Does patient have nerve No 12/29/23 13:29 stimulator Patient instructed to have device shut off --Does patient have Pacemaker No 01/03/24 06:47 or ICD? When Was Last Pacemaker Check QUESTION #4 FULL TEXT: You/Your Family Experience fever (hyperthermia) with Anesthesia Last Oral Intake Last Oral intake: Last Oral Intake NPO since 00:00 01/03/24 06:47 Meds taken in AM with sips of water? Meds patient instructed to take am of surgery PONV PONV - remote sensing technologist: PONV - remote sensing technologist Female Yes 12/29/23 13:29 HX of Motion Sickness No 12/29/23 13:29 HX of N/V After Surgery No 12/29/23 13:29 Non-Smoker Yes 12/29/23 13:29 Duration of Surgery greater No 12/29/23 13:29 than 60 minutes Number of Risk Factors 2 12/29/23 13:29 PONV Score Moderate Risk 12/29/23 13:29 Height & Weight Height & Weight: Anesthesia: Height & Weight Height 5 ft 6 in 01/03/24 06:47 Weight: 81.647 kg 01/03/24 06:47 Body Mass Index (BMI) 29.0 01/03/24 06:47 Respiratory Assessment Respiratory Assessment - remote sensing technologist: Respiratory Tract Infection Hx - remote sensing technologist Hx Respiratory Tract Infection No 12/29/23 13:29 STOP Sleep Apnea STOP Sleep Apnea - remote sensing technologist: STOP Sleep Apnea - remote sensing technologist Hx Hypertension No 12/29/23 13:29 Hx Sleep Apnea No 12/29/23 13:29 CPAP BIPAP Do you snore loudly (louder No 12/29/23 13:29 than talking or can be heard Do you often feel tired/ No 12/29/23 13:29 fatigued/ sleepy during daytime? Has anyone observed you stop No 12/29/23 13:29 breathing during sleep? STOP Results Negative 12/29/23 13:29 QUESTION #5 FULL TEXT : Do you snore loudly (louder than talking or can be heard through closed doors)? Tobacco Use History Tobacco Use History - remote sensing technologist: Tobacco Use History - remote sensing technologist Tobacco Use Smoking Status Never smoker 12/29/23 13:29 Hx Tobacco Use No 12/29/23 13:29 Years Smoking Packs Smoked per Day Smoking Cessation Date was within the last 15 years Hx Smoking Cessation Date Hx Smoking Cessation Counseling Hematologic Medial History Hematologic Hx - remote sensing technologist: Hematologic Medical Hx - electronics engineering manager Hx of Blood Transfusion No 12/29/23 13:29 Hx of Transfusion in last 3 No 12/29/23 13:29 Months Date of Last Transfusion (if within last 3 months) Ever experience any problems No 12/29/23 13:29 with transfusion(s)? Specify any problems Hx of Preganancy in last 3 No 12/29/23 13:29 Months Nurse Filling Out Transfusion [facility] 12/29/23 13:29 & Questions: Date: 12/29/23 12/29/23 13:29 Time: 13:36 12/29/23 13:29 Patient unable to answer at this time (ie. confused, unrespo /Reproduction History /Reproductive History - remote sensing technologist: /Reproductive Hx- remote sensing technologist Hx Now Gestational Age (in weeks): EDC: Hx Hx Para Hx Section SAB No 07/26/22 12:21 Active Medications Active Medications: Current Medications Generic Name Dose Route Start Last Admin Trade Name Freq PRN Reason Stop Dose Admin Lactated Ringer's 1,000 mls @ 15 mls/hr 01/03/24 06:45 01/03/24 06:54 IV 15 mls/hr .Q48H GILLIAN Administration Anesthesia Focused Assessment* Temperature: 98.2 F Pulse Rate: 67 Blood Pressure: 115/69 Respiratory Rate: 16 Pulse Ox: 100 Airway Assessment Mouth opens: 2 cm Mallampati Score: III Focused Labs Anesthesia Preop lab: CBC WBC 9.4 K/mm3 (4.4-11.0) 12/23/21 00:55 RBC 4.30 M/mm3 (4.2-5.4) 12/23/21 00:55 Hgb 13.1 g/dL (12.0-15.0) 12/23/21 00:55 Hct 39.4 % (37-47) 12/23/21 00:55 Plt Count 182 K/mm3 (150-450) 12/23/21 00:55 CHEMISTRY Potassium 3.7 mmol/L (3.5-5.1) 12/23/21 00:55 Sodium 139 mmol/L (136-145) 12/23/21 00:55 BUN 20 mg/dL (7-18) H 12/23/21 00:55 Creatinine 0.88 mg/dL (0.55-1.02) 12/23/21 00:55 Glucose 106 mg/dL (74-106) 12/23/21 00:55 TSH 2.21 uIU/mL (0.358-3.74) 09/16/21 07:54 COAG Urine Test Negative Negative 12/23/21 01:14 Review of Systems (Anesthesia) ROS Narrative System reviewed and no additional complaints, except as documented. [facility] Medical History Wears glasses Non-smoker Encounter for screening colonoscopy Anxiety Oral herpes Home Medications ?Medication ?Instructions ?Recorded ?Last Taken ?Type sertraline 50 mg tablet (Zoloft) 50 mg PO DAILY 07/23/19 Unknown History Allergy/AdvReac Type Severity Reaction Status Date / Time Penicillins AdvReac hives Verified 01/03/24 06:46 Sulfa (Sulfonamide AdvReac hives Verified 01/03/24 06:46 Antibiotics) Family History Mother Breast cancer Father Suicide Surgical History [place] teeth extracted Social History current occupational status: employed Smoking Status: Never smoker alcohol intake: current alcohol intake frequency: holidays/special occasions only substance use type: does not use seatbelt use: always do you feel safe at home: Yes additional social history: Anthony
--- NOTE | 2024-01-03 07:59 | PCM.POST.ANE ---
Anesthesia: Postop Eval I Current Vital Signs Temperature: 97.5 F Pulse Rate: 64 Blood Pressure: 95/55 Respiratory Rate: 14 Pulse Ox: 97 Oxygen Delivery Method: Room Air Assessment Airway patent: Yes Spontaneous unlabored respirations: Yes Mental status: Asleep nausea: No Vomiting: No Anesthesia Complication: No Fluid Hydration Crystalloid volume administer (ml): 500 Total IV fluid infused: 500 Progress Note Anesthesia document: Postop Eval 1 completed: Yes
--- NOTE | 2024-01-03 08:03 | OP.COLON_ITS ---
Patient Name: Marcie Teague Procedure Date: 01/03/2024 6:54 AM Date of : 1980 Age: 43 Procedure: Colonoscopy Indications: Rectal bleeding Providers: Isael Johnson MD Referring MD: Isael Johnson MD Medicines: Propofol per Anesthesia Patient Profile: This is a 43 year old female. Refer to note in patient chart for documentation of history and physical. Last Colonoscopy: none. The patient's first colonoscopy is today. Complications: No immediate complications. Procedure: Pre-Anesthesia Assessment: - Prior to the procedure, a History and Physical was performed, and patient medications and allergies were reviewed. The patient's tolerance of previous anesthesia was also reviewed. The risks and benefits of the procedure and the sedation options and risks were discussed with the patient. All questions were answered, and informed consent was obtained. Prior Anticoagulants: The patient has taken no anticoagulant or antiplatelet agents. After reviewing the risks and benefits, the patient was deemed in satisfactory condition to undergo the procedure. After I obtained informed consent, the scope was passed under direct vision. Throughout the procedure, the patient's blood pressure, pulse, and oxygen saturations were monitored continuously. The Colonoscope was introduced through the anus and advanced to the cecum, identified by appendiceal orifice and ileocecal valve. The colonoscopy was performed without difficulty. The patient tolerated the procedure well. The quality of the bowel preparation was good. The ileocecal valve, appendiceal orifice, and rectum were photographed. Scope In: 7:43:57 AM Scope Withdrawal Time 0 hours 6 minutes 0 seconds Scope Out: 7:53:36 AM Total Procedure Duration Time 0 hours 9 minutes 39 seconds Findings: The entire examined colon appeared normal on direct and retroflexion views. Impression: - The entire examined colon is normal on direct and retroflexion views. - No specimens collected. Recommendation: - Discharge patient to home. - Resume previous diet. - Continue present medications. - Repeat colonoscopy in 10 years for screening purposes. Procedure Code(s): --- Professional --- 62723, Colonoscopy, flexible; diagnostic, including collection of specimen(s) by brushing or washing, when performed (separate procedure) Diagnosis Code(s): --- Professional --- K62.5, Hemorrhage of anus and rectum CPT copyright 2021 [employer]. All rights reserved. The codes documented in this report are preliminary and upon aqueduct and reservoir keeper review may be revised to meet current compliance requirements. Isael Johnson MD 01/03/2024 8:02:43 AM This report has been signed electronically. Number of Addenda: 0 Note Initiated On: 01/03/2024 6:54 AM
--- NOTE | 2024-01-03 08:03 | OP.CCLET_ITS ---
01/03/2024 Enedelia Rodgers [facility] [address] [place] [address] Re : Colonoscopy procedure for Marcie [facility] Dear Dr. Rodgers This procedure was performed on Wednesday, January 03, 2024. My impressions and recommendations are as follows: Impressions : - The entire examined colon is normal on direct and retroflexion views. - No specimens collected. Recommendations : - Discharge patient to home. - Resume previous diet. - Continue present medications. - Repeat colonoscopy in 10 years for screening purposes. My findings are described in the full procedure note, which is enclosed. If I can be of further assistance, please feel free to contact me at Doctor phone number(s): , Work: . Sincerely, Isael Johnson MD 01/03/2024 8:02:43 AM This report has been signed electronically.
--- NOTE | 2024-01-03 11:56 | PCM.POSTANE2 ---
Anesthesia Postop Eval I Sum Postop Eval Completion status Anesthesia document: Postop Eval 1 completed: Yes Anesthesia Postop Eval I Summary Anesthesia Postop Eval I Summary: Anesthesia Postop Eval I: Assessment Summary Airway patent Yes 01/03/24 08:05 [email or web address] Spontaneous unlabored Yes 01/03/24 08:05 [email or web address] respirations Mental status Asleep 01/03/24 08:05 [email or web address] nausea No 01/03/24 08:05 [email or web address] Vomiting No 01/03/24 08:05 [email or web address] Anesthesia Postop Eval I: Fluid Summary Crystalloid volume administer 500 01/03/24 08:05 [email or web address] (ml) Colloids volume administered ( ml) Blood Product volume administered (ml) Total IV fluid infused 500 01/03/24 08:05 [email or web address] Anesthesia Postop Eval I: Summary Notes Anesthesia Complication No 01/03/24 08:05 [email or web address] Anesthesia Complication Comment: Post-operative progress note Anesthesia: Postop Eval II Evaluation Mental status: Awake Pain Level: 0 nausea: No Vomiting: No Complications Anesthesia Complication: No
== END 2024-01-03 08:41 | disposition home or self-care (01) ==
LOC: EN 06:03 → AC 06:04
PROVIDERS: PCP Family Medicine; Referring Provider Surgery; Visit Provider Surgery
PROC: 0DJD8ZZ Inspection of Lower Intestinal Tract, Via Natural or Artificial Opening Endoscopic (ICD-10-PCS; CPT 45378; principal; 2024-01-03 07:25)
DX: K62.5 Hemorrhage of anus and rectum (principal)
CPT/HCPCS: 45378; J2405

== ENCOUNTER → 2024-05-03 | Outpatient (CLI) | payer OTHER, SELFPAY ==
[2024-05-08 16:10] LABS: Age Gdln ACOG Testing 30-65 (.); HPV APTIMA, High Risk Negative (Negative)
[2024-05-08 20:52] LABS: HPV Reflexed? YES, CHARGE PATIENT
== END | disposition home or self-care (01) ==
LOC: LABSPEC 15:52
PROVIDERS: PCP Family Medicine; Referring Provider Family Medicine; Visit Provider Family Medicine
DX: Z12.4 Encounter for screening for malignant neoplasm of cervix (principal)
CPT/HCPCS: 87624; 88175; G0145

== ENCOUNTER → 2024-05-04 | Outpatient (CLI) | payer OTHER, SELFPAY ==
--- NOTE | 2024-05-04 12:47 | BI_ITS ---
MAMMOGRAPHY - BILATERAL SCREENING REASON FOR EXAM: Female, 43 years old. Routine annual screening examination. PERTINENT HISTORY: Non-contributory. TECHNIQUE: Digital bilateral breast tori (3D mammographic acquisition) in the CC and MLO projections. 2-D mediolateral oblique (MLO) and craniocaudad (CC) views of both breasts were obtained. CAD: Full Field Digital Mammography with Computer Added Detection was performed. COMPARISON: Comparison is made with prior study September 16, 2022. FINDINGS: Breast Composition: There are scattered areas of fibroglandular density. There are no dominant masses or suspicious calcifications. No other significant abnormalities are identified. There has been no significant change since the prior study. BI/SCRN MAMM (CAD)W/TORI BILAT IMPRESSION: Stable bilateral screening mammogram. Yearly follow-up mammogram recommended. (A) ASSESSMENT CATEGORY: BIRADS Category 1: Negative. A letter regarding these results will be sent to the patient by the facility within 30 days. Approximately 10% of breast cancers are not detected by mammography. A normal mammogram should not delay biopsy of a clinically suspicious abnormality. [id number] Electronically Signed: Heri Coates MD at 10:29 EDT ,
== END | disposition home or self-care (01) ==
PROVIDERS: PCP Family Medicine; Referring Provider Family Medicine; Visit Provider Family Medicine
DX: Z12.31 Encounter for screening mammogram for malignant neoplasm of breast (principal)
CPT/HCPCS: 77063; 77067

== ENCOUNTER → 2024-05-05 | Outpatient (CLI) | payer OTHER, SELFPAY ==
[2024-05-05 12:04] LABS: Absolute Lymphocyte Count 1.32 X10^3/uL (0.83-4.51); Absolute Neutrophil Count 1.9 X10^3/uL (2.0-7.7); Basophil# 0.05 X10^3/uL; Basophil% 1.4 % (0-1); Eosinophil# 0.04 X10^3/uL; Eosinophils% 1.1 % (0-5); Hematocrit 38.1 % (37-47); Hemoglobin 12.9 g/dL (12.0-15.0); Lymphocyte # 1.32 X10^3/ul (0.83-4.51); Lymphocyte % 36.1 % (19-41); Mean Corp Hgb Conc 33.9 g/dL (32-36); Mean Corpuscular Hgb 30.5 pg (27.0-32.0); Mean Corpuscular Volume 90.1 fL (81-99); Mean Platelet Vol. 11.3 fl (6.2-12.0); Monocyte# 0.31 X10^3/uL; Monocyte% 8.5 % (0-10); NRBC Flagged by Analyzer 0 % (0-5); Neutrophil # 1.93 X10^3/uL (2.7-7.7); Neutrophil % 52.6 % (47-70); Platelet Count 221 K/mm3 (150-450); RBC Distribution Width SD 42.3 fl (35.1-43.9); Red Blood Count 4.23 M/mm3 (4.2-5.4); White Blood Count 3.7 K/mm3 (4.4-11.0)
[2024-05-05 12:37] LABS: ALB/GLOB Ratio 1.5 RATIO (0.9-2.4); AST(SGOT) 21 U/L (15-37); Alanine Aminotransfer ALT/SGPT 35 U/L (13-56); Albumin, Serum 4.1 g/dL (3.2-5.0); Alkaline Phosphatase 77 U/L (45-117); Anion Gap 4 (5-15); BUN 17 mg/dL (7-18); BUN/Creat Ratio 21.3 RATIO (10-20); Calcium,Total 9.1 mg/dL (8.5-10.1); Chloride 109 mmol/L (98-107); Cholesterol 196 mg/dL (200); EST Glomerular Filtration Rate 84 mL/min (>60); Est Glom Filt Rate - Afr Amer 102 mL/min (>60); Globulin 2.8 g/dL (2.2-4.2); Glucose 95 mg/dL (74-106); High Density Lipoprotein 67 mg/dL; Potassium 3.7 mmol/L (3.5-5.1); Protein, Total 6.9 g/dL (6.4-8.2); Sodium Level 139 mmol/L (136-145); Triglycerides 78 mg/dL; Very Low Density Lipoprotein 16 mg/dL (5-40)
== END | disposition home or self-care (01) ==
LOC: LAB 11:00
PROVIDERS: PCP Family Medicine; Referring Provider Family Medicine; Visit Provider Family Medicine
DX: Z01.419 Encounter for gynecological examination (general) (routine) without abnormal findings (principal); Z83.3 Family history of diabetes mellitus
CPT/HCPCS: 36415; 80053; 80061; 84443; 85025

== ENCOUNTER → 2025-05-07 | Outpatient (CLI) | payer OTHER, SELFPAY ==
--- NOTE | 2025-05-07 10:10 | BI_ITS ---
EXAM: SCREENING MAMM (CAD), BILAT DATE: 05/07/2025 CLINICAL HISTORY: F, Age 44 y/o , SCREENING TECHNIQUE: Procedure Code: [id number] Modality: MG Procedure: SCREENING MAMM (CAD), BILAT COMPARISON: Prior exam(s) were compared FINDINGS: TISSUE DENSITY: There are scattered areas of fibroglandular density. Bilateral Breast Mammographic Findings: No suspicious masses, calcifications or other abnormalities are identified. BI/SCREENING MAMM (CAD), BILAT IMPRESSION: No mammographic evidence of malignancy in either breast. OVERALL FINAL ASSESSMENT BI-RADS 1: NEGATIVE. RECOMMENDATION: Routine annual follow-up in 1 Year Additional Recommendation none A letter with findings and recommendations will be mailed to the patient. Reading Location: [id number]
== END | disposition home or self-care (01) ==
LOC: OPBI 10:09
PROVIDERS: PCP Family Medicine; Referring Provider Family Medicine; Visit Provider Family Medicine
DX: Z12.31 Encounter for screening mammogram for malignant neoplasm of breast (principal)
CPT/HCPCS: 77067